=== PATIENT | female | born 1970 | race Caucasian/White ===

== ENCOUNTER 2020-10-31 18:33 | Emergency (ER) | payer OTHER ==
[~2020-10-31] VITALS: Ht 157.5 cm; Wt 52.2 kg
[2020-10-31] MEDS ORDERED: KETOROLAC TROMETHAMINE 60 MG INJ IM ONE ×2 (22:00→22:01)
[2020-10-31] MEDS ORDERED: CEPH250C PO (22:03)
--- NOTE | 2020-10-31 22:11 | NUR ---
Patient discharged to home in stable condition. Written and verbal after care instructions given. Patient verbalizes understanding of instructions. Stressed follow up or return to ER for worsening s/s.
[2020-10-31 22:21] LABS: BASOPHILS % (AUTO) 0.4 % (0.0-2.0); EOSINOPHILS # (AUTO) 0.1 K/uL (0.0-0.7); EOSINOPHILS % (AUTO) 1.1 % (0.0-7.0); HEMATOCRIT 35.6 % (31.2-41.9); HEMOGLOBIN 11.8 g/dL (10.9-14.3); LYMPHOCYTES # (AUTO) 2.8 K/uL (20.0-40.0); LYMPHOCYTES % (AUTO) 34.3 % (20.5-51.5); MEAN CORPUSCULAR HGB CONC 33 g/dL (32.3-35.6); MEAN CORPUSCULAR VOLUME 87.4 fL (75.5-95.3); MONOCYTES # (AUTO) 0.6 K/uL (2.0-10.0); MONOCYTES % (AUTO) 7.6 % (0.0-11.0); NEUTROPHILS # (AUTO) 4.6 K/uL (1.8-8.9); NEUTROPHILS % (AUTO) 56.6 % (38.5-71.5); PLATELET COUNT (AUTO) 223 K/uL (179-408); RED BLOOD CELL COUNT(AUTO) 4.07 MIL/uL (3.63-4.92); WHITE BLOOD COUNT (AUTO) 8.2 K/uL (3.8-11.8)
== END 2020-10-31 22:12 | disposition home or self-care (01) ==
LOC: ER 18:41
DX: L04.0 Acute lymphadenitis of face, head and neck (principal)
CPT/HCPCS: 36415; 70490; 85025; 96372; 99284; J1885; A4663